=== PATIENT | female | born 1980 | race Caucasian/White ===

== ENCOUNTER 2024-06-26 18:57 | Emergency (ER) | payer MEDICAID, SELFPAY ==
[2024-06-26 19:07] VITALS: BP 118/72; BP 130/78; PULSE 93; PULSE 97; RESP 18; TEMP 36.9; O2SAT 100; O2SAT 99; BMI 28.3
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
[2024-06-26] MEDS: Ibuprofen 600 MG TABLET PO (20:22)
[2024-06-26] MEDS: Acetaminophen 325 MG TABLET 975 MG PO (20:22)
--- NOTE | 2024-06-26 21:01 | PC.NURSE ---
attempted to call report to [facility] x3 times, no answer at this time.
--- NOTE | 2024-06-26 21:59 | MHC.EDTECH ---
patient waiting for transport back to [facility]. Patient agitate and refusing vitals at this time. Spoke with RN.
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
[2024-06-26] MEDS: Haloperidol Lactate 5 MG/ML VIAL IM (22:30)
[2024-06-26] MEDS: diphenhydrAMINE HCL 50 MG/ML VIAL IM (22:30)
[2024-06-26] MEDS: LORazepam 2 MG/ML VIAL IM (22:30)
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
[2024-06-27 01:51] VITALS: BP 130/78; PULSE 97; RESP 18; TEMP 36.9; O2SAT 100
== END 2024-06-27 01:52 | disposition home or self-care (01) ==
PROVIDERS: Emergency Provider Internal Medicine
DX: S00.83XA Contusion of other part of head, initial encounter (principal); R51.9 Headache, unspecified; Y04.2XXA Assault by strike against or bumped into by another person, initial encounter; Y93.89 Activity, other specified; Y92.89 Other specified places as the place of occurrence of the external cause; Y99.0 Civilian activity done for income or pay
CPT/HCPCS: 96372; 99284; 99285; J1200; J1630; J2060